=== PATIENT | female | born 1970 | race Caucasian/White ===

== ENCOUNTER 2017-09-08 14:34 | Emergency (ER) | payer MEDICAID ==
[~2017-09-08] VITALS: Ht 162.6 cm; Wt 72.0 kg
[2017-09-08 14:55] VITALS: Ht 162.6 cm; Wt 72.0 kg
[2017-09-08] MEDS ORDERED: CLOT30CR24 TOP (16:19)
[2017-09-08] MEDS ORDERED: FLUC150T41 PO (16:19)
--- NOTE | 2017-09-08 16:30 | ERD ---
ER Documentation Chief Complaint Chief Complaint BILAT UPPER THIGH RASH X 3 WEEKS HPI 46-year-old female otherwise healthy comes in with bilateral upper thigh rash that started 3 weeks ago. She describes this as pruritic, started in her right medial thigh and started on her left side as well. There is no fevers or chills or drainage from this. She has not tried any lotions, medications or creams with for this. ROS All systems reviewed and are negative except as per history of present illness. Medications Home Meds Active Scripts Fluconazole* (Fluconazole*) 150 Mg Tablet, 150 MG PO DAILY, #2 TAB Prov:VIKRAM CANO PA-C 09/08/17 Clotrimazole* (Clotrimazole* AF) 1% - 30 Gm Cream.gm., 1 APPLIC TOP BID for 7 Days, TUB Prov:VIKRAM CANO PA-C 09/08/17 Allergies Allergies: Coded Allergies: No Known Drug Allergy (Verified Allergy, Unknown, 06/29/13) PMhx/Soc History of Surgery: Yes ( X1) Anesthesia Reaction: No Hx Neurological Disorder: No Hx Respiratory Disorders: No Hx Cardiac Disorders: No Hx Psychiatric Problems: No Hx Miscellaneous Medical Probl: No Hx Alcohol Use: No Hx Substance Use: No Hx Tobacco Use: No Physical Exam Vitals Vital Signs Date Time Temp Pulse Resp B/P Pulse Ox O2 Delivery O2 Flow Rate FiO2 09/08/17 14:55 99.3 114 18 134/87 96 Physical Exam General: Well-developed, well-nourished. The patient appears in no acute distress. HEENT: Head is normocephalic, atraumatic. No scleral icterus. Neck: Supple. Nontender. Lungs: Clear to auscultation. Normal air movement. Heart: Regular rate and rhythm. S1 and S2 are normal. No murmurs, gallops, or rubs. Abdomen: Nondistended. Extremities: No clubbing or cyanosis. Moving extremities x 4. No weakness. Neurologic: Alert and oriented 3. No focal deficits. Normal speech and gait. Skin: Bilateral inner thighs have erythematous rash, that is velvety, is nontender, no vesicles, no drainage. There is no lymphatic streaking. Procedures/MDM 46-year-old female presents with a pruritic rash is erythematous in her medial rash is most likely tinea corporis. Patient's symptoms are not consistent with cellulitis, deep space infection, she will be treated with clotrimazole cream and Diflucan. 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 Departure Diagnosis: Primary Impression: Rash Condition: Good Patient Instructions: Fungal Infection, Skin [General] VIKRAM CANO PA-C Sep 08, 2017 16:30
== END 2017-09-08 17:06 | disposition home or self-care (01) ==
LOC: FTE 14:34
DX: R21 Rash and other nonspecific skin eruption (principal)
CPT/HCPCS: 99283